=== PATIENT | male | born 1965 | race Caucasian/White ===

== ENCOUNTER 2016-08-30 19:39 | Emergency (ER) | payer MEDICARE ==
[2016-08-30] MEDS ORDERED: KETOROLAC 60 MG/2 ML VIAL IM ONE (21:33)
== END 2016-08-30 22:12 | disposition home or self-care (01) ==
LOC: ER 19:39
DX: S16.1XXA Strain of muscle, fascia and tendon at neck level, initial encounter (principal); S29.012A Strain of muscle and tendon of back wall of thorax, initial encounter; M54.12 Radiculopathy, cervical region
CPT/HCPCS: 72050; 72072; 96372